=== PATIENT | male | born 1970 | race African-American/Black ===

== ENCOUNTER 2016-08-02 02:12 | Emergency (ER) | payer OTHER ==
[~2016-08-02] VITALS: Ht 182.9 cm; Wt 83.1 kg
[2016-08-02 02:54] VITALS: BP 114/68
== END 2016-08-02 02:54 ==
LOC: EME 02:12 → EDBD 02:12 → EME 02:12
DX: T40.991A Poisoning by other psychodysleptics [hallucinogens], accidental (unintentional), initial encounter (principal); R53.83 Other fatigue; Y92.148 Other place in prison as the place of occurrence of the external cause; H55.00 Unspecified nystagmus; F32.9 Major depressive disorder, single episode, unspecified; K04.7 Periapical abscess without sinus; Z72.0 Tobacco use
CPT/HCPCS: 99281; 99283